=== PATIENT | male | born 1955 | race Caucasian/White ===

== ENCOUNTER 2021-02-18 07:47 | Outpatient (REF) | payer OTHER, SELFPAY ==
[2021-02-18 11:14] LABS: Estimated Average Glucose 120 mg/dL; Hemoglobin A1c % 5.8 %
[2021-02-18 11:28] LABS: Alanine Aminotransferase 23 U/L (0-40); Albumin Level 4.5 g/dL (3.5-5.0); Alkaline Phosphatase 58 U/L (39-117); Anion Gap 14 (12-20); Aspartate Amino Transferase 18 U/L (5-37); Blood Urea Nitrogen 17 mg/dL (9-16); Calcium 9.9 mg/dL (8.4-10.2); Carbon Dioxide 26 mmol/L (22-29); Chloride 105 mmol/L (96-108); Cholesterol 157 mg/dL; Estimated Glomerular Filt Rate 58; Glucose Fasting 112 mg/dL (60-99); HDL Cholesterol 33 mg/dL; LDL Cholesterol Calculated 105 mg/dl; Potassium 4.8 mmol/L (3.3-5.1); Sodium 140 mmol/L (135-145); Total Protein 7.1 g/dL (6.5-8.0); Triglycerides 99 mg/dL
[2021-02-18 11:50] LABS: Prostate Specific Antigen 1.95 ng/mL (<0.05-4.0)
== END 2021-02-18 07:48 | disposition home or self-care (01) ==
LOC: HO.MANLDS 07:47
PROVIDERS: PCP Internal Medicine; Visit Provider Internal Medicine
DX: Z00.00 Encounter for general adult medical examination without abnormal findings (principal); Z12.5 Encounter for screening for malignant neoplasm of prostate; I10 Essential (primary) hypertension; E78.00 Pure hypercholesterolemia, unspecified; R73.01 Impaired fasting glucose
CPT/HCPCS: 36415; 80053; 80061; 83036; 84153

== ENCOUNTER 2022-03-23 07:53 | Outpatient (REF) | payer OTHER, SELFPAY ==
[2022-03-23 10:48] LABS: MANUAL DIFF FLAG NO
[2022-03-23 10:52] LABS: Basophils Absolute Auto 0.1 X10*3/uL (0.0-0.2); Basophils Percent Auto 0.8 % (0-2); Eosinophils Absolute Auto 0.3 X10*3/uL (0.0-0.4); Eosinophils Percent Auto 3.8 % (0-4); Hematocrit 40.5 % (42.0-52.0); Hemoglobin 13.4 g/dl (14.0-18.0); Imm Gran Abs Auto 0.03 X10*3/uL (0.00-0.03); Imm Gran Pct Auto 0.4 % (0.0-0.4); Lymphocytes Absolute Auto 1.6 X10*3/uL (1.2-4.9); Lymphocytes Percent Auto 20.4 % (20-40); Mean Corpuscular HGB Conc 33.1 g/dl (31.0-36.0); Mean Corpuscular Hemoglobin 28.3 pg (27.0-33.0); Mean Corpuscular Volume 85.4 fL (80.0-98.0); Monocytes Absolute Auto 0.6 X10*3/uL (0.1-1.2); Monocytes Percent Auto 7.6 % (2-11); Neutrophils Absolute Auto 5.1 x10*3/uL (2.0-8.3); Platelet Count 200 X10*3/uL (160-400); Red Blood Count 4.74 X10*6/uL (4.60-5.80); Red Cell Distribution Width 12.9 % (11.0-16.0); White Blood Count 7.6 X10*3/uL (4.8-10.8)
[2022-03-23 11:10] LABS: Alanine Aminotransferase 22 U/L (0-40); Albumin Level 4.3 g/dL (3.5-5.0); Alkaline Phosphatase 61 U/L (39-117); Anion Gap 15 (12-20); Aspartate Amino Transferase 19 U/L (5-37); Bilirubin Total 0.8 mg/dL (0.0-1.0); Blood Urea Nitrogen 16 mg/dL (9-16); Calcium 9.3 mg/dL (8.4-10.2); Carbon Dioxide 26 mmol/L (22-29); Chloride 104 mmol/L (96-108); Cholesterol 161 mg/dL; Estimated Glomerular Filt Rate > 60; Glucose Random 111 mg/dL (60-115); HDL Cholesterol 40 mg/dL; LDL Cholesterol Calculated 94 mg/dl; Potassium 4.4 mmol/L (3.3-5.1); Sodium 141 mmol/L (135-145); Total Protein 6.6 g/dL (6.5-8.0); Triglycerides 138 mg/dL
[2022-03-23 11:12] LABS: Estimated Average Glucose 117 mg/dL; Hemoglobin A1c % 5.7 %
[2022-03-23 11:23] LABS: ~HepC Num1 0.05 S/CO (0.00-0.79); ~Hepatitis C Antibody Nonreactive (Nonreactive)
[2022-03-23 11:34] LABS: Prostate Specific Antigen 2.27 ng/mL (<0.05-4.0)
== END 2022-03-23 07:54 | disposition home or self-care (01) ==
LOC: HO.MANLDS 07:53
PROVIDERS: Visit Provider Internal Medicine
DX: Z12.5 Encounter for screening for malignant neoplasm of prostate (principal); Z11.59 Encounter for screening for other viral diseases; I10 Essential (primary) hypertension; R73.01 Impaired fasting glucose; E78.00 Pure hypercholesterolemia, unspecified
CPT/HCPCS: 36415; 80053; 80061; 83036; 84153; 85025; 86803

== ENCOUNTER 2022-06-11 08:42 | Outpatient (REF) | payer OTHER, SELFPAY ==
--- NOTE | ~2022-06-11 | US_ITS ---
EXAMINATION: US ABDOMEN COMPLETE CLINICAL INFORMATION: Epigastric pain. COMPARISON: Ultrasound abdomen complete 01/28/2020. TECHNIQUE: Real-time imaging of the abdominal viscera. FINDINGS: PANCREAS: Not well visualized due to shadowing from overlying bowel gas. ABDOMINAL AORTA: Extensive atherosclerotic disease. Again noted aneurysm of the distal abdominal aorta measuring 3.5 x 3.4 cm, previously 3.4 x 3.3 cm on 01/28/2020. INFERIOR VENA CAVA: Visualized portions are normal. LIVER: Normal. The liver is normal in size. The liver contour is normal. Parenchymal echogenicity is normal. No focal hepatic lesion. There is no intrahepatic biliary duct dilatation seen. GALLBLADDER: Normal. The gallbladder is physiologically distended without evidence of stones, sludge, polyps, wall thickening or pericholecystic fluid. COMMON BILE DUCT: Normal in caliber measuring 0.5 cm in diameter. RIGHT KIDNEY: Simple cyst in the lower pole measuring 1.5 cm for which no imaging follow-up is routinely recommended. No hydronephrosis or renal calculi. The kidney measures 10.1 cm in maximum dimension. LEFT KIDNEY: Simple cysts in the upper and lower poles, for which no imaging follow-up is routinely recommended measuring 2.1 and 0.7 cm respectively. No hydronephrosis or renal calculi. The kidney measures 10.1 cm in maximum dimension. SPLEEN: Normal. The spleen measures 9.1 cm in maximum dimension. FREE FLUID: None. US/US abdomen complete IMPRESSION: Redemonstration of distal abdominal aortic aneurysm measuring up to 3.5 cm, previously 3.4 cm on 01/28/2020. In an asymptomatic patient, a 2 year interval AAA ultrasound is recommended. If symptoms developed or high risk factors are present for infection/rupture, consultation with a vascular specialist and evaluation with a CTA is recommended. Extensive atherosclerotic disease of the abdominal aorta.
== END 2022-06-11 08:43 | disposition home or self-care (01) ==
LOC: HO.US 08:42
PROVIDERS: Visit Provider Internal Medicine
DX: R10.13 Epigastric pain (principal)
CPT/HCPCS: 76700

== ENCOUNTER 2023-04-06 07:48 | Outpatient (REF) | payer OTHER, SELFPAY ==
[2023-04-06 13:17] LABS: MANUAL DIFF FLAG NO
[2023-04-06 13:27] LABS: Basophils Absolute Auto 0.1 X10*3/uL (0.0-0.2); Basophils Percent Auto 1.1 % (0-2); Eosinophils Absolute Auto 0.2 X10*3/uL (0.0-0.4); Eosinophils Percent Auto 3.2 % (0-4); Hematocrit 42.2 % (42.0-52.0); Hemoglobin 13.8 g/dl (14.0-18.0); Imm Gran Abs Auto 0.02 X10*3/uL (0.00-0.03); Imm Gran Pct Auto 0.4 % (0.0-0.4); Lymphocytes Absolute Auto 1.6 X10*3/uL (1.2-4.9); Lymphocytes Percent Auto 29.1 % (20-40); Mean Corpuscular HGB Conc 32.7 g/dl (31.0-36.0); Mean Corpuscular Hemoglobin 28.6 pg (27.0-33.0); Mean Corpuscular Volume 87.4 fL (80.0-98.0); Mean Platelet Volume 10.6 fL (9.4-12.4); Monocytes Absolute Auto 0.5 X10*3/uL (0.1-1.2); Monocytes Percent Auto 8.8 % (2-11); Neutrophils Absolute Auto 3.1 x10*3/uL (2.0-8.3); Neutrophils Percent Auto 57.4 % (45-73); Platelet Count 215 X10*3/uL (160-400); Red Blood Count 4.83 X10*6/uL (4.60-5.80); Red Cell Distribution Width 12.8 % (11.0-16.0); White Blood Count 5.4 X10*3/uL (4.8-10.8)
[2023-04-06 13:52] LABS: Alanine Aminotransferase 29 U/L (0-40); Albumin Level 4.4 g/dL (3.5-5.0); Alkaline Phosphatase 59 U/L (39-117); Anion Gap 12 (12-20); Aspartate Amino Transferase 24 U/L (5-37); Bilirubin Total 0.7 mg/dL (0.0-1.0); Blood Urea Nitrogen 16 mg/dL (9-16); Calcium 9.8 mg/dL (8.4-10.2); Carbon Dioxide 27 mmol/L (22-29); Chloride 107 mmol/L (96-108); Cholesterol 179 mg/dL (<200); Estimated Glomerular Filt Rate > 60; Glucose Random 97 mg/dL (60-115); HDL Cholesterol 32 mg/dL (>40); LDL Cholesterol Calculated 118 mg/dL (<100); Potassium 4.5 mmol/L (3.3-5.1); Sodium 141 mmol/L (135-145); Triglycerides 145 mg/dL (<150)
[2023-04-06 14:13] LABS: Prostate Specific Antigen 1.85 ng/mL (<0.05-4.0)
== END 2023-04-06 07:49 | disposition home or self-care (01) ==
LOC: HO.MANLDS 07:48
PROVIDERS: Visit Provider Internal Medicine
DX: E78.00 Pure hypercholesterolemia, unspecified (principal); I10 Essential (primary) hypertension; Z12.5 Encounter for screening for malignant neoplasm of prostate
CPT/HCPCS: 36415; 80053; 80061; 84153; 85025

== ENCOUNTER 2023-07-11 09:03 | Outpatient (REF) | payer OTHER, SELFPAY ==
[2023-07-11 10:48] LABS: MANUAL DIFF FLAG NO
[2023-07-11 10:59] LABS: Basophils Absolute Auto 0.1 X10*3/uL (0.0-0.2); Basophils Percent Auto 0.7 % (0-2); Eosinophils Absolute Auto 0.3 X10*3/uL (0.0-0.4); Hematocrit 41.3 % (42.0-52.0); Hemoglobin 14.4 g/dl (14.0-18.0); Imm Gran Abs Auto 0.07 X10*3/uL (0.00-0.03); Imm Gran Pct Auto 0.8 % (0.0-0.4); Lymphocytes Absolute Auto 1.7 X10*3/uL (1.2-4.9); Lymphocytes Percent Auto 19.9 % (20-40); Mean Corpuscular HGB Conc 34.9 g/dl (31.0-36.0); Mean Corpuscular Hemoglobin 30.3 pg (27.0-33.0); Mean Corpuscular Volume 86.9 fL (80.0-98.0); Mean Platelet Volume 9.3 fL (9.4-12.4); Monocytes Absolute Auto 0.5 X10*3/uL (0.1-1.2); Monocytes Percent Auto 6.1 % (2-11); Neutrophils Absolute Auto 5.9 x10*3/uL (2.0-8.3); Neutrophils Percent Auto 68.5 % (45-73); Platelet Count 155 X10*3/uL (160-400); Red Blood Count 4.75 X10*6/uL (4.60-5.80); Red Cell Distribution Width 13.2 % (11.0-16.0); White Blood Count 8.6 X10*3/uL (4.8-10.8)
[2023-07-11 11:12] LABS: Estimated Average Glucose 160 mg/dL; Hemoglobin A1c % 7.2 % (<6.0)
[2023-07-11 11:25] LABS: Alanine Aminotransferase 21 U/L (0-40); Albumin Level 4.3 g/dL (3.5-5.0); Alkaline Phosphatase 61 U/L (39-117); Anion Gap 13 (12-20); Aspartate Amino Transferase 18 U/L (5-37); Bilirubin Total 0.9 mg/dL (0.0-1.0); Blood Urea Nitrogen 25 mg/dL (9-16); Calcium 9.9 mg/dL (8.4-10.2); Carbon Dioxide 30 mmol/L (22-29); Chloride 102 mmol/L (96-108); Cholesterol 128 mg/dL (<200); Estimated Glomerular Filt Rate > 60; Glucose Fasting 183 mg/dL (60-99); HDL Cholesterol 29 mg/dL (>40); LDL Cholesterol Calculated 59 mg/dL (<100); Potassium 3.5 mmol/L (3.3-5.1); Sodium 141 mmol/L (135-145); Total Protein 7.2 g/dL (6.5-8.0); Triglycerides 203 mg/dL (<150)
[2023-07-11 11:36] LABS: Prostate Specific Antigen Scr 1.68 ng/mL (<0.05-4.0)
[2023-07-11 12:00] LABS: Creatinine Urine 122.19 mg/dL
== END 2023-07-11 09:04 | disposition home or self-care (01) ==
LOC: HO.10HDL 09:03
PROVIDERS: Visit Provider Internal Medicine
DX: Z12.5 Encounter for screening for malignant neoplasm of prostate (principal); E11.9 Type 2 diabetes mellitus without complications; I10 Essential (primary) hypertension; E78.00 Pure hypercholesterolemia, unspecified; I25.10 Atherosclerotic heart disease of native coronary artery without angina pectoris
CPT/HCPCS: 36415; 80053; 80061; 82043; 82570; 83036; 84153; 85025

== ENCOUNTER 2023-11-09 08:10 | Outpatient (REF) | payer OTHER, SELFPAY ==
[2023-11-09 14:07] LABS: Uric Acid 6.7 mg/dL (3.4-7.0)
== END 2023-11-09 08:11 | disposition home or self-care (01) ==
LOC: HO.MANLDS 08:10
PROVIDERS: Visit Provider Physician Assistant
DX: E79.0 Hyperuricemia without signs of inflammatory arthritis and tophaceous disease (principal)
CPT/HCPCS: 36415; 84550

== ENCOUNTER 2024-11-23 07:37 | Outpatient (REF) | payer OTHER, SELFPAY ==
--- OUTSIDE RECORDS SUMMARY | 2024-11-23 07:40 | XMS_ITS | Data Portability ---
Author Organization [facility] Home Service Address [address] [place] [address] Assessment Encounter Date Assessment Date Assessment LastModified by Organization Details LastModified Time 10/17/2023 10/17/2023 Patient agreed and verbally consents to this audio and video Telehealth appt via a secure platform [email or web address] Not available 10/17/2023 14:38:41 05/09/2024 05/09/2024 Patient agreed and verbally consents to this audio and video Telehealth appt via a secure platform [email or web address] Not available 05/09/2024 11:34:08 Plan of Treatment Reminders Order Date Submit Date Provider Last Modified By Organization Details Last Modified Time Details Appointments None recorded. Lab HbA1c (hemoglobi n A1c), blood 2024 025 [facility], [address] [place] [address], [address], 5 15:35:45 CBC 2024 025 [facility], [address] [place] [address], [address], 5 15:35:45 lipid panel, blood 2024 025 [facility], [address] [place] [address], [address], 5 08:29:32 CMP, serum or plasma 2024 025 [facility], [address] [facility], [place], [address], 5 15:35:45 PSA, serum or plasma 2024 025 [facility], [address] [place] [address], [place], [address], 5 15:35:45 urinalysis complete, reflex culture 2023 [facility] (Outpatient), [address] [place] [address], [address], 4 14:42:30 CMP, serum or plasma 2023 [facility] (Outpatient), [address] [place] [address], [address], 4 11:38:13 CBC w/ auto diff 2023 024 [facility] (Outpatient), [address] [place] [address], [address], 4 11:38:13 ESR (erythrocy te sedimentat ion rate), blood 2023 024 [facility] (Outpatient), [address] [place] [address], [address], 4 11:38:13 C-reactive protein, quantitati ve, serum or plasma 2023 024 [facility] (Outpatient), [address] [place] [address], [address], 4 11:38:13 hemoglobin A1c, QN, blood 2023 024 [facility] (Outpatient), [address] [place] [address], [address], 4 11:38:13 uric acid, serum or plasma 2023 024 [facility] (Outpatient), [address] [place], [address], 4 11:38:13 uric acid, serum or plasma 2023 024 [facility], [address] [place] [address], [address], 4 10:14:07 uric acid, serum or plasma 2023 024 [facility], [address] [place] [address], [address], 4 11:30:40 lipid panel, blood 2022 023 [facility], [address] [place] [address], [address], 3 11:25:15 CMP, serum or plasma 2022 023 [facility], [address] [place] [address], [address], 3 11:25:15 CBC 2022 023 [facility], [address] [place] [address], [address], 3 11:25:15 PSA, serum or plasma 2022 023 [facility], [address] [place] [address], [address], 3 11:25:15 Referral None recorded. Procedures None recorded. Surgeries None recorded. Imaging US, abdominal aorta - known infrarenal AAA, new onset abdominal and back pain 2023 024 [email or web address] Not available 4 08:23:55 XR, lumbosacra l spine, 2 or 3 view 2023 024 MICHAEL Not available 4 08:44:31 Medication Orders allopurino l 100 mg tablet 2023 024 [email or web address] Not available 4 14:59:32 meloxicam 15 mg tablet 2022 023 [email or web address] Not available 4 14:35:50 Patient TargetsNo targets recorded. Patient Instructions Encounter Date Encounter Id Patient Instructions Last Modified By Organization Details Last Modified Time 04/05/2023 [id number] arthritis: care instructions Not available 04/05/2023 09:29:34 osteoarthritis: care instructions Not available 04/05/2023 09:29:34 10/12/2024 [id number] prediabetes: car e instructions Not available 10/12/2024 15:34:22 Reason for Referral None Reported. Results Created Date Observation Date Name Description Value Unit Range Abnormal Flag Note LastModifiedBy Organization Detail LastModifiedTime 08/24/19 24 08/19/2023 US, carot id arter y No observ ation record ed. [email or web address] [facility] [address], [place], [address], 08/24/2023 15:00:11 11/21/19 24 11/18/2023 US, malule x, aorta No observ ation record ed. [email or web address] [facility] [address], [place], [address], 11/21/2023 08:48:27 11/21/19 24 11/18/2023 US, duple x, arter ial, lower extre mity No observ ation record ed. [email or web address] [facility] [address], [place], [address], 11/21/2023 08:48:55 05/10/20 24 05/09/2024 XR, lumbo sacra l spine , 2 or 3 view No observ ation record ed. [email or web address] [address] [place], [address], 05/11/2024 09:24:21 05/14/20 24 2024 US, abdom inal aorta No observ ation record ed. [email or web address] [address], [place], [address], 05/14/2024 13:28:32 06/28/20 24 06/27/2024 MRI, lumba r spine , w/o contr ast No observ ation record ed. [email or web address] [address], [address], 06/29/2024 10:19:24 Result Notes None recorded. Problems Name Problem SNOMED Code Status Onset Date Resolution Date Notes Provider Name and Address Organization Details Recorded Time Epiploic appendag itis 27951159036 517718 Active 2017 Choco Alvarado DO [address] [place] [address], [address], [facility] 8 09:55:34 Arterios clerotic vascular disease 90631197 Active 2018 Choco Alvarado DO [address] [place] [address], [address], [facility] 9 11:11:28 Tobacco dependen ce syndrome 06959344 Active 2018 Choco Alvarado DO [address] [place] [address], [address], [facility] 9 11:15:10 Generali zed rash 975467481 Active 2021 Choco Alvarado DO [address] [place] [address], [address], [facility] 2 15:03:06 Allergic reaction 440438884 Active 2021 CHAPARRITA BROWN [address] [place] [address], [address], [facility] 2 10:39:56 Allergic contact dermatit is 434300631 Active 2021 Choco Curranjani, DO [address] [place], [address], [facility] 2 15:09:48 Epigastr ic pain 74044721 Active 2021 Choco Alvarado, DO [address] [place], [address], [facility] 2 15:11:04 Cough 98121609 Active 2021 Choco Alvarado, DO [address] [place], [address], [facility] 2 15:40:32 Hyperuri cemia 38072333 Active 2023 CHAPARRITA BROWN [address] [place], [address], [facility] 4 14:36:21 Uric acid level above referenc e range 47566822 Active 2023 CHAPARRITA BROWN [address] [place] [address], [address], [facility] 4 10:04:32 Aneurysm of infraren al abdomina l aorta 022901378 Active 2023 CHAPARRITA BROWN [address] [place] [address], [address], [facility] 4 10:15:05 Low back pain 593268816 Active 2023 CHAPARRITA BROWN [address] [place] [address], [address], [facility] 4 11:33:38 Flank pain 541569075 Active 2023 CHAPARRITA BROWN [address] [place] [address], [address], [facility] 4 11:35:22 [facility] hyperten case 45983102 [facility] 2017 [facility] 8 14:40:49 Osteoart hritis 712299758 Active 2017 [facility] 8 14:43:08 Gastroes ophageal reflux disease 404369654 Active 2017 [facility] 8 14:41:18 Hiatal hernia 81530141 Active 2017 [facility] 8 14:41:25 Hypercho lesterol emia 75838383 Active 2017 [facility] 8 14:41:32 Psoriasi s 1112683 Active 2017 Lilijamila Marroquin [facility] 8 14:41:41 Divertic ular disease 940743417 Active 2017 Lilijamila Marroquin [facility] 8 14:41:47 Impaired fasting glycemia 447553136 Active 2017 [facility] 8 14:41:54 Abdomina l aortic aneurysm 667570927 Active 2017 infra renal Lili Marroquin [facility] 8 14:42:17 History of tobacco use 96245057872 03 Active 2017 quit 01/2018 Fany Purvis NP, S [address] [place], [address], [facility] 8 11:57:44 Arthropa thy of lumbar facet joint 630641989 Active 2017 Lumbar Spine Lili Marroquin [facility] 8 14:42:48 Problem Notes None recorded. Procedures Surgical History None recorded. Imaging Results Imaging Date Name Status LastModified by Organization Details LastModified Time 08/19/2023 US, carotid artery completed [facility] [address], [place], [address], 08/24/2023 15:00:11 11/18/2023 US, duplex, aorta completed [address] [facility] [address], [place], [address], 11/21/2023 08:48:27 11/18/2023 US, duplex, arterial, lower extremity completed [address] [facility] [address], [place], [address], 11/21/2023 08:48:55 05/09/2024 XR, lumbosacral spine, 2 or 3 view completed [address], [address], 05/11/2024 09:24:21 2024 US, abdominal aorta completed [address], [address], 05/14/2024 13:28:32 06/27/2024 MRI, lumbar spine, w/o contrast completed [address], [address], 06/29/2024 10:19:24 Procedure Notes None recorded. Medical Equipment None Reported. Allergies Allergen ID Allergen Name Allergen Category Reaction Reaction Severity Criticality Documentation Date Start Date Code Code System Note Provider Name and Address Organization Details Recorded Time 134 penicilli n V Not available Not available Not available Not available 10/14/2017 7984 RxNorm possi ble>? ? Choco Alvarado, DO [address] [place], [address], [facility] 9 10:53:13 Medications Name Sig Start Date Stop Date Status Note LastModified by Organization Details LastModified Time antacid & antigas mint liquid TAKE 30ML BY MOUTH EVERY 6 HOURS NEEDED active Not Available Not Available No t Available losartan 50 mg tablet TAKE 1 TABLET BY MOUTH EVERY DAY 2023 active Not Available Not Available Not Avai lable hydralazine 10 mg tablet TAKE 2 TABLETS BY MOUTH EVERY DAY 06/18 completed Not Available Not Available Not Available prednisone 10 mg tablet TAKE 4 TABLETS BY MOUTH DAILY FOR 3 DAYS THEN TAKE 3 TABLETS FOR 3 DAYS THEN TAKE 2 TABLETS FOR 3 DAYS THEN TAKE 1 TABLET FOR 3 DAYS 07/14 completed Not Available Not Available Not Available doxycycline hyclate 100 mg capsule Take 1 capsule twice a day by oral route. 01/18 completed Not Available Not Available Not Available naproxen 375 mg tablet Take 1 tablet twice a day by oral route. 02/21 completed Not Available Not Available Not Available azithromyci n 250 mg tablet TAKE 2 TABLETS (500 MG) BY ORAL ROUTE ONCE DAILY FOR 1 DAY THEN 1 TABLET (250 MG) BY ORAL ROUTE ONCE DAILY FOR 4 DAYS 02/24 completed Not Available Not Available Not Available meloxicam 15 mg tablet TAKE 1 TABLET BY MOUTH EVERY DAY 10/16 completed Not Available Not Available Not Available famotidine 40 mg tablet TAKE 1 TABLET BY MOUTH EVERY DAY 04/05 completed Not Available Not Available Not Available prednisone 20 mg tablet 03/29 completed Not Available Not Available Not Available betamethaso ne, augmented 0.05 % topical cream APPLY TOPICALLY TO RASH TWICE DAILY FOR 2 WEEKS 05/09 completed Not Available Not Available Not Available simvastatin 10 mg tablet 02/21 completed Not Available Not Available Not Available allopurinol 100 mg tablet TAKE 1 TABLET BY MOUTH DAILY active Not Available Not Available No t Available triamcinolo ne acetonide 0.1 % topical cream apply qd prn for flare up 11/14 completed Not Available Not Available Not Available oxycodone-a cetaminophe n 5 mg-325 mg tablet 11/21 completed Not Available Not Available Not Available pravastatin 10 mg tablet Take 1 tablet every day by oral route for 90 days. active Not Available Not Available No t Available triamcinolo ne acetonide 0.025 % topical cream prn 05/04 completed Not Available Not Available Not Available tamsulosin 0.4 mg capsule TAKE 2 CAPSULES BY MOUTH EVERY DAY active Not Available Not Available No t Available benzonatate 100 mg capsule 10/16 completed Not Available Not Available Not Available tacrolimus 0.1 % topical ointment Apply TO affected AREAS TWICE A DAY FOR 4 WEEKS 11/14 completed Not Available Not Available Not Available oseltamivir 75 mg capsule 11/21 completed Not Available Not Available Not Available lisinopril 10 mg tablet Take 1 tablet every day by oral route for 90 days. 06/18 completed Not Available Not Available Not Available betamethaso ne dipropionat e 0.05 % topical cream 01/14 completed Not Available Not Available Not Available omeprazole 20 mg capsule,del ayed release TAKE 1 CAPSULE BY MOUTH EVERY DAY 30 MINUTES BEFORE BREAKFAST active Not Available Not Available No t Available bisacodyl 5 mg tablet,rafa yed release 04/11 completed Not Available Not Available Not Available lisinopril 5 mg tablet 02/24 completed Not Available Not Available Not Available mupirocin 2 % topical ointment APPLY TOPICALLY TO THE AFFECTED AREA TWICE DAILY FOR 1 WEEK 11/14 completed Not Available Not Available Not Available cefuroxime axetil 500 mg tablet TAKE 1 TABLET BY MOUTH EVERY 12 HOURS FOR 14 DAYS 04/05 completed Not Available Not Available Not Available fluocinonid e 0.05 % topical cream 01/14 completed Not Available Not Available Not Available doxycycline hyclate 100 mg tablet TAKE 1 TABLET BY MOUTH TWICE DAILY FOR 7 DAYS 03/29 completed Not Available Not Available Not Available naproxen 500 mg tablet TAKE 1 TABLET BY MOUTH TWICE DAILY active Not Available Not Available No t Available ezetimibe 10 mg tablet Take 1 tablet every day by oral route. 07/14 completed Not Available Not Available Not Available rosuvastati n 5 mg tablet Take 1 tablet every day by oral route for 30 days. 09/03 completed Not Available Not Available Not Available omeprazole Take one tablet once a day prn 01/14 completed Not Available Not Available Not Available ibuprofen once a day prn 01/14 completed Not Available Not Available Not Available Metamucil active Not Available Not Joy ilable Not Available Culturelle active Not Available Not Av ailable Not Available ProAir HFA 90 mcg/actuati on aerosol inhaler 11/21 completed Not Available Not Available Not Available GaviLyte-G 236 gram-22.74 gram-6.74 gram-5.86 gram oral solution 04/11 completed Not Available Not Available Not Available Prevnar 13 (PF) 0.5 mL intramuscul ar syringe 07/23 completed Not Available Not Available Not Available Probiotic daily 06/18 completed cultu rall, OTC Not Available Not Available Not Available Fluarix Quad 6328-2252 (PF) 60 mcg (15 mcg x 4)/0.5 mL IM syringe 11/21 completed Not Available Not Available Not Available Fluzone High-Dose (PF) 180 mcg/0.5 mL intramuscul ar syringe 05/31 completed Not Available Not Available Not Available Fluzone High-Dose (PF) 180 mcg/0.5 mL intramuscul ar syringe 07/23 completed Not Available Not Available Not Available Fluzone High-Dose Quad (PF) 240 mcg/0.7 mL IM syringe ADM 0.7ML IM UTD 02/24 completed Not Available Not Available Not Available BinaxNOW COVID-19 Ag Self Test kit TEST DIRECTED TODAY 03/29 completed Not Available Not Available Not Available Vitals Date Recorded Body height Body mass index (BMI) Body weight Heart rate Oxygen saturation Oxygen saturation in Arterial blood by Pulse oximetry Systolic blood pressure Diastolic blood pressure Provider Name and Address Organization Details Last Updated DateTime 3 171.45 cm 27.9 kg/m2 59751.2 2 g 53 /min 100 % 100 % 130 mm[Hg] 80 mm[Hg] Tri Barrera [facility] 3 09:21:52 Date Recorded Body height Body mass index (BMI) Body weight Heart rate Oxygen saturation Oxygen saturation in Arterial blood by Pulse oximetry Systolic blood pressure Diastolic blood pressure Provider Name and Address Organization Details Last Updated DateTime 4 171.45 cm 29.6 kg/m2 14106.6 6 g 82 /min 98 % 98 % 128 mm[Hg] 78 mm[Hg] Ramiro Baez MA [facility] 4 09:48:07 Date Recorded Body height Body mass index (BMI) Body weight Heart rate Oxygen saturation Oxygen saturation in Arterial blood by Pulse oximetry Systolic blood pressure Diastolic blood pressure Provider Name and Address Organization Details Last Updated DateTime 5 171.45 cm 29.2 kg/m2 05809.9 6 g 82 /min 94 % 94 % 132 mm[Hg] 80 mm[Hg] Ramiro Baez MA [facility] 5 15:05:18 Social History Question Answer Notes LastModified by Organizat ion Details LastModified Time Tobacco Smoking Status Former Smoker Not Available [facility] 06/17/2020 03:36:24 What Was The Date Of Your Most Recent Tobacco Screening? 10/12/2024 [email or web address] Information not available 10/12/2024 Do You Or Have You Ever Used Any Other Forms Of Tobacco Or Nicotine? No [email or web address] Information not available 08/20/2022 Sex: Unknown Functional Status None recorded. Mental Status None recorded. Family History Nothing Reported. Medical History Condition Response Coronary Artery Disease N Other N Gout N Kidney Stones N Blood Diseases N Breast Cancer N Blood Transfusion N Depression N COPD N Lung Disease N Defects or Inherited Disease N Anxiety Disorder N Muscle, Joint, or Bone Problems N Obesity N Vision or Eye Problems N Arthritis N Polyps N Infertility N Mental Disorder N Cancer N Varicosities N Stroke N Endometriosis N Bladder or Kidney Problems N High Cholesterol N Liver Disease N Headaches N Fibromyalgia N Kidney Disease N Allergies/Hayfever N Heart Problems N Hospitalizations N Thyroid Problems N GI Problems N Skin Problems N Eating Disorder N Anemia N MRSA exposure N Constipation N Mental Illness N Ovarian Cancer N Diabetes N Seizures/Epilepsy N Tuberculosis N Congestive Heart Failure (CHF) N Eczema N Diverticulitis N Abuse/Domestic Violence N Asthma N Reflux/GERD N Hepatitis N Heart Disease N Pulmonary Embolism N Hypertension N Chicken Pox N Autism Spectrum Disorder (ASD) N Osteoporosis N Immunizations Vaccine Type Date Status Note Provider Nam e and Address Organization Details Recorded Time Influenza, split virus, quadrivalent, preservative 8 completed Lacey mcmahan [facility] 08/20/2022 14:16:21 Tdap 8 completed Lili mcmahan [facility] 06/13/2018 08:16:27 Influenza, split virus, quadrivalent, preservative 9 completed Lacey mcmahan [facility] 08/20/2022 14:16:21 Pneumococcal conjugate PCV 13 9 giana mcmahan [facility] 08/20/2022 14:16:21 Past Encounters Encounter ID Performer Location Encounter Start Date Encounter Closed Date Diagnosis/Indication Diagnosis SNOMED-CT Code Diagnosis ICD10 Code Diagnosis Note [id number] Choco Alvarado DO [facility] [address] [facility],[place] [address] 11/21/2017 12:07:28 11/21/2017 13:19:31 Gastroesophageal reflux disease 637824284 K21.9 stable Abdominal pain 61163083 R10.9 [id number] Choco Alvarado, [facility] [address] [facility],[place] [address] 12/12/2017 09:34:15 12/12/2017 10:35:38 Liver function tests outside reference range 242054018 R94.5 will be careful in future re etoh will need flollow up lab work in 2-3 months Essential hypertension 56396760 I10 stable compliant with meds rechk in 6mo Hyperlipidemia 07206326 E78.5 will restart statin and recheck in 2=3 months lfts [id number] Ana María, LILY [facility] [address] [facility],[place] [address] 12/19/2017 13:19:20 12/19/2017 14:20:57 Pain in left knee 9576251672 47690 M25.562 recommend consult ortho for possible fluid aspiration gout/pseud ogout vs. bursitis vs. OA actually has h/o of mild chondrocal cinosis possibly suggestive of pseudogout in the right knee last year, however it was determined his pain was related to medial meniscal tear which he has been treating with a brace unlikely infectious without entry site will get xr of knee as well as CBC and Uric acid continue conservati ve tx of naproxen, ice, wrap, rest Hiatal hernia 66856985 K 44.9 stable on omeprazole Essential hypertension 91799778 I10 elevated today. not currently on medication s prior 2 visits were normal - borderline . recommend continuing to monitor and lifestyle changes [id number] [facility] [address] [facility],[place] [address] 02/21/2018 11:37:55 02/21/2018 14:28:58 Left lower quadrant pain 266428829 R10.32 Essential hypertension 54201676 I10 stable [id number] Fany Purvis NP, S [facility] [address] [facility],[place] [address] 02/28/2018 09:06:23 02/28/2018 10:15:56 Hypercholesterolemia 59968894 E78.00 Epiploic appendagitis 14 48478839 0329348 K38.8 discussed, Ibu 600mg TID X 1 week, call if pain persists [id number] Fany Purvis NP, [facility] [address] [facility],[place] [address] 04/04/2018 10:36:19 04/04/2018 12:24:18 Abdominal pain 37131766 R10.9 Hypercholesterolemia 136 50646 E78.00 stopped lola clark appt in May. will recheck labs, continue healthy diet Essential hypertension 41904488 I10 stable [id number] Fany Purvis NP, [facility] [address] [facility],[place] [address] 04/11/2018 10:51:01 04/11/2018 16:09:40 Pharyngitis 123749220 J02.9 [id number] Fany Purvis NP, [facility] [address] [facility],[place] [address] 04/19/2018 13:53:48 04/19/2018 14:37:25 Pharyngitis 042623993 J02.9 [id number] Choco Alvarado, [facility] [address] [facility],[place] [address] 05/31/2018 09:24:06 05/31/2018 11:09:33 Impaired fasting glycemia 839765962 R73.01 will need a1c next lab Essential hypertension 15632193 I10 stable compliant with meds rechk in 6mo Epiploic appendagitis 14 44927411 2717321 K38.8 now quiet and without issue have advised pt to stop all dairy and to start probioitic Neck pain 95033022 M54.2 or throat pain will need to look into it as it is intermitte nt but persistant does ahve a lot of muscle strain will hve ent look at pt next week [id number] LILY Gotti [facility] [address] [facility] [address],[place] [address] 09/06/2018 10:27:16 09/06/2018 12:29:20 Gastroesophageal reflux disease 294340889 K21.9 Impaired f asting glycemia 956465575 R73.01 Essential hypertension 24340050 I10 has hbp, but he doesn't take anything for it he has been taking sudafed though Acute sinusitis 19748541 J01.90 mild mucinex may continue sudafed very short time in setting of mildly elevated bp ozzy pot, flonase, fluids rest humidifier [id number] November LILY Gotti [facility] [address] [facility],[place] [address] 02/21/2019 15:35:16 02/21/2019 16:37:00 Abdominal pain 58817677 R10.9 bland diet lots of fluids ? gastritis pancreatit is seems less likely diverticul itis seems less likely unclear if epiploic appendagit is is contributi ng Epiploic appendagitis 14 72305699 6992444 K38.8 unlikely related Gastroesop hageal reflux disease 709750698 K21.9 quiet acid reflux ? gastritis increase omeprazole to bid for 2-3 days then back down to once a day Diverticular disease 397 623447 K57.90 LLQ non tender, this is unlikely Essential hypertension 36572270 I10 stable Hiatal hernia 98552723 K 44.9 stable on omeprazole [id number] Choco Alvarado [facility] [facility] [address] [facility],[place] [address] 03/06/2019 10:17:38 03/06/2019 11:54:33 Active or passive immunization [id number] Z23 Recurrent abdominal pain 675231335 R10.9 given his negative work up thus far and his noted long smoking history and his resumption of smoking we wonder if we are dealing with mesenteric ischemia will order CT Angio [id number] Choco Alvarado [facility] [address] [facility],[place] [address] 03/19/2019 10:27:59 03/19/2019 11:17:10 Arteriosclerotic vascular disease 70172300 I70.90 will start tx but will watch the statin as he may have had a jt issue in the past Hypercholesterolemia 136 16442 E78.00 will start statin Abdominal aortic aneurysm 326943211 I71.4 is stable at 2.7 cm fusiform will follow yearly with US Essential hypertension 88287094 I10 stable compliant with meds rechk in 6mo Tobacco de pendence syndrome 96561463 F17.200 LONG discussion re need to quit [id number] Choco Alvarado, [facility] [address] [facility],[place] [address] 07/23/2019 10:00:39 07/23/2019 10:34:08 Hypercholesterolemia 84301015 E78.00 LDL is now 73 with 5 mg of crestor Impaired f asting glycemia 712541948 R73.01 will need a1c next lab but fbs is 89 Essential hypertension 73449761 I10 stable compliant with meds bp are good rechk in 6mo Diverticular disease 397 687497 K57.90 discussed diet in detail and need to be careful if he notices certain foods consistent ly cause him to have lower abd issues 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 Tobacco de pendence syndrome 85762457 F17.200 LONG discussion re need to quit he has been off for 1 week so far but is struggling [id number] CHAPARRITA BROWN [facility] [address] [facility],[place] [address] 01/15/2020 13:47:00 01/15/2020 15:12:59 Right lower quadrant pain 646182837 R10.31 will start with labs and go [place] [id number] CHAPARRITA BROWN [facility] [address] [facility],[place] [address] 04/11/2020 11:03:08 04/11/2020 11:24:54 [id number] CHAPARRITA BROWN [facility] [address] [facility],[place] [address] 09/03/2020 09:21:42 09/03/2020 14:33:15 Acute pharyngitis 981845888 J02.9 sounds like possible strep given symptoms just tested negative for COVID on tuesday waiting for test results from tuesday will call with results when they come in Nasal congestion 0489422 0 R09.81 part of cold symptoms will see if improvemen t with abx Headache 62457947 R51.9 part of cold symptoms the patient is waiting on test result from work will fu with test results Essential hypertension 14307557 I10 BP elevated at home, but he has been very stressed due to his dog getting surgery also with possible infection, that could be why his BP is elevated is following up with cardio next tuesday Hypercholesterolemia 136 21032 E78.00 started on new cholestero l medication , in the chart, tolerable at this point will fu with cardio [id number] Choco Alvarado DO [facility] [address] [facility] [address],[place] [address] 02/24/2021 09:47:15 02/24/2021 10:50:55 Active or passive immunization 001072194 Z23 utd Adult heal th examination 446861187 Z00.00 Abdominal aortic aneurysm 084236821 I71.4 is stable at 3.2 cm fusiform will follow yearly with USand he will be restarting the pravastat Hepatitis C screening 41 4051041 Z11.59 next lab done [id number] CHAPARRITA BROWN [facility] [address] [facility] [address] [address] 02/27/2021 09:52:40 02/27/2021 12:02:26 Allergic reaction to bee sting 927734756 T63.444A discussed possible worsening reaction and need for epipen down the road Cellulitis 569602390 L03 .114 will start on doxy for the next week Acromiocla vicular joint pain 071296599 M25.511 will hold on referralwi ll call if he would like one [id number] Choco Alvarado DO [facility] [address] [facility] [address] [address] 03/29/2022 14:10:29 03/29/2022 16:24:36 Active or passive immunization 355045376 Z23 due for shingles vax will consider Adult heal th examination 040706661 Z00.00 we will have him get some lab Hepatitis C screening 41 6417503 Z11.59 next lab done Abdominal aortic aneurysm 241588694 I71.4 is stable at 3.2 cm fusiform will follow yearly with USand he will be restarting the pravastat Essential hypertension 18508412 I10 stable compliant with meds bp are good rechk in 6mo Generalized rash 8919006 06 R21 will send in a pred taper [id number] KIM WEBB [facility] [address] [facility],[place] [address] 04/12/2022 10:18:51 04/12/2022 11:13:02 Generalized rash 543826924 R21 will start bendryl and zyrtec morning and start on hydralazin e Allergic reaction 368594 005 T78.49XA will also refer him to Dr. Zaidi [id number] Choco Alvarado, [facility] [address] [facility],[place] [address] 05/04/2022 14:41:28 05/04/2022 15:37:36 Allergic contact dermatitis 681691301 L23.9 he has very significan t dermograph ism too \\\cont the benadrylhe will stop the zetia if no change , he will try stopping the lisinopril Epigastric pain 53485550 R10.13 [id number] Choco Alvarado, [facility] [address] [facility],[place] [address] 06/18/2022 14:54:42 06/18/2022 16:44:02 Arteriosclerotic vascular disease 33330784 I70.90 will start tx but will watch the statin as he may have had a jt issue in the past Gastroesop hageal reflux disease 993928790 K21.9 has been having a lot of breakthrou gh with acid reflux despite daily omeprazole we will have hi m take it bid for the next couple weeks and see if we can get under control if not , will refer to GI Abdominal aortic aneurysm 329007572 I71.43 has had no significan t change (3.4 to 3.5cm) will follow yearly or biyr=lizz Cough 00660617 R05.9 stop the lisinopril we will change to losartan 50 Allergic reaction 803332 005 T78.49XA has been seen by7 dermatolog ist and given kenalog and topical triamcinol onelets give him a long standing pred taper stop ezetimibe [id number] TONJA FERNANDEZ [facility] [address] [facility] [address],[place] [address] 07/14/2022 15:12:47 07/16/2022 08:39:59 Cough 04207896 R05.3 BP is good on the switch Allergic reaction 018326 005 T78.49XA still has the rashbooked out until sep for f/u with dermatolog ist Active or passive immunization 864709409 Z23 patient advised he is due for flu shot, pneu 23, & shingles [id number] CHAPARRITA BROWN [facility] [address] [facility], [place] [address] 08/20/2022 14:14:45 08/20/2022 15:17:14 Abdominal aortic aneurysm 597114707 I71.33 will continue to monitor Advance care planning 71 5415790 Z71.89 advised Gastroesop hageal reflux disease 581682514 K21.9 stable [id number] Choco Alvardao DO [facility] [address] [facility] [address], it[address] [facility] [place] [address] 04/05/2023 09:13:05 04/05/2023 09:42:29 Abdominal aortic aneurysm 908041009 I71.33 has had no significan t change (3.4 to 3.5cm) will follow yearly or biyr=lizz Essential hypertension 29981913 I10 stable compliant with meds bp are good rechk in 6mo Hypercholesterolemia 136 82133 E78.00 LDL is now 73 with 5 mg of crestor Osteoarthritis 252794908 M19.90 noted a lot of discomfort in the am at times Adult heal th examination 155314358 Z00.00 we will have him get some lab [id number] CHAPARRITA BROWN [facility] [address] [facility] [address],[place] [employer] [facility] [address] 10/17/2023 10:13:00 10/17/2023 14:44:34 Hyperuricemia 50568339 E79.0 agreed to trial of uric acid for the hyperurice lupis, do not think adjustment of losartan would change the uric acid levelscan try working on lower purine diet but in the meantime will start him on allopurino l and trend his levels [id number] CHAPARRITA BROWN [facility] [address] [facility] [address] [address] 11/15/2023 09:42:56 11/15/2023 15:10:35 Uric acid level above reference range 90989886 E79.0 will set up with recheckwil l see if continues stablewill try him off of it for three weeks if next check is normal Aneurysm o f infrarenal abdominal aorta 240041693 I71.33 has f/u with [place] AA on tuesday [id number] Choco Alvarado, [facility] [address] [facility],[place] [address] 10/12/2024 14:55:49 10/12/2024 15:45:34 Active or passive immunization 230806074 Z23 due for shingles vax will consider Adult heal th examination 277932577 Z00.00 we will have him get some lab Essential hypertension 01414985 I10 stable compliant with meds bp are good rechk in 6mo Hypercholesterolemia 136 68987 E78.00 LDL is now 73 with 5 mg of crestor Aneurysm o f infrarenal abdominal aorta 807118919 I71.33 stable with the most recent US Impaired f asting glycemia 342137197 R73.01 will need a1c next lab but fbs is 89 [id number] [facility] [address] [facility] [address],[place] [employer] [facility] [address] 05/09/2024 10:45:20 05/09/2024 11:59:23 Low back pain 509748756 M54.59 Flank pain 190286502 R10 .9 Abdominal aortic aneurysm 409973295 I71.33 will continue to monitor Health Concerns Section Related Observation LastModified by Organization Bhavik john LastModified Time None Recorded Concern Status LastModified by Organization Details LastModified Time None Recorded Advance Directives Directive None Recorded Payers Encounter Date Sequence Insurance Name Policy Number Policy Bentley Covered Member ID Bentley Member ID Guarantor Name 04/05/2023 1 PENDING SALE TO [facility]) [id number] Murphy Alberts [id number] Murphy Alberts 10/17/2023 1 PENDING SALE TO [facility]) [id number] Murphy Alberts [id number] Murphy Alberts 11/15/2023 1 PENDING SALE TO [facility]) [id number] Murphy Albetrs [id number] Murphy Alberts 05/09/2024 1 PENDING SALE TO [facility]) [id number] Murphy Alberts [id number] Murphy Alberts 10/12/2024 1 PENDING SALE TO [facility]) [id number] Murhpy Alberts [id number] Murphy Alberts Notes Date Note Type Note Provider Name a nd Address Organization Details Recorded Time 3 text/html here for his cpe doing ok overall Choco Alvarado DO [address] [place], [address], [facility] 04/05/2023 09:37:59 4 text/html f/u rheum labs The patient is participating in this appointment via telemedicine communication with a phone call/video calling service ([employer])The patient consents to use of these platforms in place of an in-person appointment due to either sick symptoms the patient is presenting with or current office closure due to COVID exposure in order to keep our office staff and patients safe the patient saw rheum, ran some labs, elevated uric acid level, told to fu with PCPcould very likely be the cause of the additional MSK pain and joint paindiscussed optionsagreed to start allopurinol, no active gout flare up, just elevated levels in his blood will have him fu in 3 weeks to recheck levels to make sure the are down trending and adjust dose if needed based on response patient agrees to this planwill also see how his symptoms do CHAPARRITA BROWN [address] [facility], [place], [address], [facility] 10/17/2023 14:41:08 4 text/html lab work f/u the patient reports that he is doing okayno side effects to the allopurinol the patient reports that he is still getting the rash, but it has calmed down from sunshine alcocer on this since it has been helpful the patient reports that he has his follow up with his US AA screening CHAPARRITA BROWN [address] [place], [address], [facility] 11/15/2023 10:18:15 4 text/html c/o low back pain The patient is participating in this appointment via telemedicine communication with a phone call/video calling service ([employer])The patient consents to use of these platforms in place of an in-person appointment due to either sick symptoms the patient is presenting with or current office closure due to COVID exposure in order to keep our office staff and patients safe the patient reports that for the last two weeks he has had low back painpersistent discomfort, spasmslower area into flankburning in foot, but could be unrelated, possible tendinitis just to increased walking worse with bending over or squattingfine with walking, no issues with walking looser bowels, but could be dietary relatedhas BPH, no changes from usual BP: 132/80HR: 80 bpmTemp.: 97.6 F the patient reports that he has been using naproxen at nightno significant changes pain in in his lower lumbar spine on right foot, has burning intermittently, tingling sensation has a known AAA, which should have had a check recently but his cardio appt got rescheduledand his CPE here got rescheduled due to COVIDagreed to full work up including urine sample, US AAA, XR and labwork CHAPARRITA BROWN [address] [facility], [place], [address], [facility] 05/09/2024 11:42:00 5 text/html Annual WellnessReported bypatient.Diet and Nutrition:healthy diet Fracture Risk:no history of fractures; no recent explained fracture; no sudden unexplained fractures; no previous musculoskeletal injuries Physical Activity:exercises on a regular basis; recent increase in physical activity; good physical condition Additional Lifestyle Factors:no tobacco use; no alcohol intake; stopped drinking alcohol Depression Risk:never feels sad, empty, or tearful; no loss of interest in activities; no significant changes in weight; no sleep disturbances or insomnia; no agitation; no loss of energy; no feelings of worthlessness or guilt; no thoughts of suicide; no history of depression; no history of mood disorders Hearing:no loss of hearing Vision:no vision problems Choco Alvarado, DO [address] [place] [address], [place], [address], [facility] 10/12/2024 15:34:59
[2024-11-23 13:20] LABS: MANUAL DIFF FLAG NO
[2024-11-23 13:27] LABS: Basophils Absolute Auto 0.1 X10*3/uL (0.0-0.2); Eosinophils Absolute Auto 0.2 X10*3/uL (0.0-0.4); Eosinophils Percent Auto 3.8 % (0-4); Hematocrit 43.3 % (42.0-52.0); Hemoglobin 14.2 g/dl (14.0-18.0); Imm Gran Abs Auto 0.03 X10*3/uL (0.00-0.03); Imm Gran Pct Auto 0.5 % (0.0-0.4); Lymphocytes Absolute Auto 1.6 X10*3/uL (1.2-4.9); Mean Corpuscular HGB Conc 32.8 g/dl (31.0-36.0); Mean Corpuscular Hemoglobin 28.9 pg (27.0-33.0); Mean Platelet Volume 11.4 fL (9.4-12.4); Monocytes Absolute Auto 0.5 X10*3/uL (0.1-1.2); Monocytes Percent Auto 8.3 % (2-11); Neutrophils Absolute Auto 3.6 x10*3/uL (2.0-8.3); Neutrophils Percent Auto 59.4 % (45-73); Platelet Count 228 X10*3/uL (160-400); Red Blood Count 4.92 X10*6/uL (4.60-5.80); Red Cell Distribution Width 12.4 % (11.0-16.0)
[2024-11-23 13:58] LABS: Alanine Aminotransferase 37 U/L (0-40); Albumin Level 4.4 g/dL (3.5-5.0); Alkaline Phosphatase 60 U/L (39-117); Anion Gap 11 (12-20); Aspartate Amino Transferase 34 U/L (5-37); Bilirubin Total 0.6 mg/dL (0.0-1.0); Blood Urea Nitrogen 16 mg/dL (9-16); Calcium 9.7 mg/dL (8.4-10.2); Carbon Dioxide 27 mmol/L (22-29); Chloride 107 mmol/L (96-108); Cholesterol 190 mg/dL (<200); Estimated Glomerular Filt Rate > 60; Glucose Random 100 mg/dL (60-115); HDL Cholesterol 33 mg/dL (>40); LDL Cholesterol Calculated 120 mg/dL (<100); Potassium 4.3 mmol/L (3.3-5.1); Prostate Specific Antigen 2.25 ng/mL (<0.05-4.0); Sodium 141 mmol/L (135-145); Triglycerides 189 mg/dL (<150)
== END 2024-11-23 07:38 | disposition home or self-care (01) ==
LOC: HO.MANLDS 07:37
PROVIDERS: Visit Provider Internal Medicine
DX: Z13.89 Encounter for screening for other disorder (principal)
CPT/HCPCS: 36415; 80053; 80061; 84153; 85025